=== PATIENT | female | born 1955 | race American Indian/Alaskan Native ===

== ENCOUNTER → 2024-09-15 | Outpatient (CLI) | payer MEDICARE, OTHER, SELFPAY ==
--- NOTE | 2024-09-15 14:35 | XR_ITS ---
Examination: Wrist, right 3 views Technique: Wrist AP, oblique, lateral 3 views Date and time of exam: September 15, 2024 1501 hours INDICATIONS: Patient fell today with injury to the wrist, wrist pain. FINDINGS: Acute impacted fracture distal radial metaphysis No significant displacement Carpal bones intact IMPRESSION: Acute impacted fracture distal radial metaphysis
== END | disposition home or self-care (01) ==
LOC: CDIM 14:21
PROVIDERS: PCP Physician Assistant; Referring Provider Nurse Practitioner Family; Visit Provider Nurse Practitioner Family
DX: S52.92XA Unspecified fracture of left forearm, initial encounter for closed fracture (principal); W19.XXXA Unspecified fall, initial encounter
CPT/HCPCS: 73110

== ENCOUNTER → 2024-09-25 | Outpatient (CLI) | payer MEDICARE, MEDICAID, SELFPAY ==
--- NOTE | 2024-09-25 14:21 | XR_ITS ---
Examination: Hand, left 3 views Technique: Hand AP, oblique, lateral 3 views Date and time of exam: September 25, 2024 1424 hours INDICATIONS: Acute intra-articular fracture distal radial metaphysis on plain films wrist 01/26/2023 FINDINGS: Significant healing fracture distal radial metaphysis with stable alignment IMPRESSION: Significant healing fracture distal radial metaphysis with stable alignment
--- NOTE | 2024-09-25 14:21 | XR_ITS ---
Examination: Wrist, left 3 views Technique: Wrist AP, oblique, lateral 3 views Date and time of exam: September 25, 2024 1424 hours Comparison 01/26/2023 INDICATIONS: Acute fracture intra-articular distal radial metaphysis 01/26/2023. FINDINGS: Significant healing fracture distal radial metaphysis with stable and satisfactory alignment IMPRESSION: Significant healing fracture distal radial metaphysis with stable and satisfactory alignment
== END | disposition home or self-care (01) ==
PROVIDERS: PCP Physician Assistant
DX: S52.92XA Unspecified fracture of left forearm, initial encounter for closed fracture (principal); X58.XXXA Exposure to other specified factors, initial encounter
CPT/HCPCS: 73110; 73130

== ENCOUNTER → 2024-11-18 | Outpatient (CLI) | payer MEDICARE, MEDICAID, SELFPAY ==
--- NOTE | 2024-11-18 16:30 | XR_ITS ---
Examination: Hand, left 3 views Technique: Hand AP, oblique, lateral 3 views Date and time of exam: November 18, 2024 1642 hours COMPARISON: September 25, 2024 INDICATIONS: Patient fell 6 weeks ago with wrist fracture, postop reduction from fixation wrist fracture FINDINGS: Significant osteopenia Significant healing fracture distal radial metaphysis with stable and satisfactory alignment IMPRESSION: Significant healing fracture distal radial metaphysis was stable and satisfactory alignment Significant arthritic change interphalangeal joint first digit
--- NOTE | 2024-11-18 16:30 | XR_ITS ---
Examination: Wrist, left 3 views Technique: Wrist AP, oblique, lateral 3 views Date and time of exam: November 18, 2024 1642 hours INDICATIONS: Postop reduction internal fixation acute fracture distal radius made 2024 FINDINGS: Healed fracture distal radius with satisfactory and stable alignment Orthopedic hardware satisfactory position IMPRESSION: Healed fracture distal radial metaphysis with stable and satisfactory alignment
== END | disposition home or self-care (01) ==
PROVIDERS: PCP Nurse Practitioner Gerontology; Referring Provider Nurse Practitioner Gerontology; Visit Provider Nurse Practitioner Gerontology
DX: M19.042 Primary osteoarthritis, left hand (principal); S52.502A Unspecified fracture of the lower end of left radius, initial encounter for closed fracture; X58.XXXA Exposure to other specified factors, initial encounter
CPT/HCPCS: 73110; 73130